=== PATIENT | female | born 1940 | race Caucasian/White ===

== ENCOUNTER 2016-11-01 08:15 | Outpatient (CLI) | payer OTHER | END 2016-11-01 08:16 | LOC: LAB 08:15 | PROVIDERS: ATTEND Pediatrics | DX: R73.02 Impaired glucose tolerance (oral) (principal) | CPT/HCPCS: 36415; 82947; 83036 ==

== ENCOUNTER 2017-05-22 07:51 | Outpatient (CLI) | payer OTHER ==
[2017-05-22 08:39] LABS: eGFR (African) > 60; eGFR (Non-African) > 60
[2017-05-22 08:41] LABS: BASOPHILS % 1.3 (0.0-1.5); MEAN CORPUSCULAR VOLUME 96.7 fl (80.0-100.0)
[2017-05-22 09:44] LABS: EOSINOPHILS % 2.1 % (0.0-6.8); MONOCYTES % 6.3 % (0.0-11.0); NEUTROPHILS # 2.2 # k/uL (1.4-7.7)
== END 2017-05-22 07:52 ==
LOC: LAB 07:51
PROVIDERS: ATTEND Pediatrics
DX: R73.01 Impaired fasting glucose (principal); I10 Essential (primary) hypertension; R53.83 Other fatigue; Z13.6 Encounter for screening for cardiovascular disorders
CPT/HCPCS: 80053; 80061; 83036; 84443; 85025